=== PATIENT | female | born 1960 | race African-American/Black ===

== ENCOUNTER → 2017-03-24 | Outpatient (CLI) | payer OTHER ==
--- NOTE | 2017-03-24 15:47 | KCIC ---
PROCEDURE Two-view chest HISTORY Persistent cough for 3 weeks COMPARISON August 23, 2011 FINDINGS Two views of the chest are submitted. There is no lobar infiltrate, pleural fluid, pneumothorax. Heart size is stable, within normal limits. There could be dilatation of the ascending thoracic aorta, poorly evaluated by this exam. IMPRESSION 1. No acute radiographic abnormality is identified. There could be dilatation of the ascending thoracic aorta, poorly evaluated by radiograph. Electronically signed by: Atul Montiel MD (March 24, 2017 15:46:05)
== END | disposition home or self-care (01) ==
LOC: KCIC 11:19
PROVIDERS: ATTEND Family Medicine
DX: R05 Cough (principal)
CPT/HCPCS: 71020

== ENCOUNTER → 2017-05-08 | Outpatient (CLI) | payer OTHER ==
--- NOTE | 2017-05-08 14:19 | KCIC ---
Examination: Ultrasound bilateral lower extremity venous duplex HISTORY: History of bilateral lower expanded swelling COMPARISON: None available TECHNIQUE: Grayscale, color Doppler 2-D, spectral waveform analysis of the bilateral lower extremity venous system performed. FINDINGS: The visualized common femoral vein, superficial femoral vein, popliteal vein demonstrate normal compression and augmentation of flow. The visualized calf veins are patent. Small lymph nodes identified in the right and left groin with the largest measuring 2.1 cm on the left IMPRESSION: No evidence of deep venous thrombosis identified in the visualized bilateral lower extremity venous system. Electronically signed by: Alan Carranza MD (05/08/2017 2:16 PM)
== END | disposition home or self-care (01) ==
LOC: KCIC US 12:47
PROVIDERS: ATTEND Nurse Anesthetist, Certified Registered
DX: R60.0 Localized edema (principal)
CPT/HCPCS: 93970

== ENCOUNTER → 2017-07-30 | Outpatient (CLI) | payer OTHER ==
--- NOTE | 2017-07-30 13:02 | KCIC ---
Indication: Right upper quadrant pain. Time of exam 12:44 PM The heart size is normal. The lungs are clear. No free air is identified. There are surgical clips in the right upper quadrant. The bowel gas pattern is nonobstructive. No pathologic calcifications are identified. IMPRESSION: No acute abnormality is detected. Electronically signed by: Julius Muniz MD (07/30/2017 12:59 PM) [id number]
== END | disposition home or self-care (01) ==
LOC: KCIC 12:26
PROVIDERS: ATTEND Family Medicine
DX: R10.11 Right upper quadrant pain (principal)
CPT/HCPCS: 74022

== ENCOUNTER → 2017-12-02 | Outpatient (CLI) | payer OTHER | END | disposition home or self-care (01) | LOC: KCIC 11:23 | DX: M19.042 Primary osteoarthritis, left hand (principal); M15.1 Heberden's nodes (with arthropathy) (principal); M25.842 Other specified joint disorders, left hand | CPT/HCPCS: 73130 ==

== ENCOUNTER → 2018-02-10 | Outpatient (CLI) | payer OTHER | END | disposition home or self-care (01) | LOC: KCIC 16:07 | DX: G56.22 Lesion of ulnar nerve, left upper limb (principal) | CPT/HCPCS: 73110 ==